=== PATIENT | female | born 1935 | race Caucasian/White ===

== ENCOUNTER 2023-05-01 13:51 | Inpatient (IN) ==
[2023-05-01] MEDS ORDERED: IOPAMIDOL 100 ML BOTTLE IV ONE (13:52)
[2023-05-01 15:20] LABS: Basophils # (Auto) 0.02 K/mcL (0.00-0.30); Basophils % (Auto) 0.3 % (0.0-2.0); Eosinophils # (Auto) 0.13 K/mcL (0.00-0.70); Eosinophils % (Auto) 1.9 % (0.0-7.0); Hematocrit 41.1 % (34.1-44.9); Hemoglobin 12.7 g/dL (11.2-15.7); Lymphocytes # (Auto) 0.66 K/mcL (1.50-4.80); Lymphocytes % (Auto) 9.7 % (15.5-49.0); Mean Cell Volume 99.3 fL (80.0-100.0); Mean Corpuscular HGB Conc 30.9 g/dL (31.0-36.0); Mean Platelet Volume 10.1 fL (8.8-12.5); Monocytes # (Auto) 0.49 K/mcL (0.10-0.90); Monocytes % (Auto) 7.2 % (1.0-12.0); Neutrophils % (Auto) 80.6 % (38.0-78.0); Platelet Count 244 K/mcL (140-440); RBC 4.14 M/mcL (3.59-5.38); Red Cell Distribution Width 19.8 % (11.5-14.5); WBC 6.8 K/mcL (4.5-11.0)
[2023-05-01 15:36] LABS: ALT/SGPT 28 U/L (<40); AST/SGOT 40 U/L (<32); Albumin 3.7 gm/dL (3.2-5.2); Albumin/Globulin Ratio 1.2 (1.0-2.3); Alkaline Phosphatase 128 U/L (39-117); Bilirubin,Total 0.9 mg/dL (0.1-1.0); Blood Urea Nitrogen 37 mg/dL (8-23); Calcium 8.8 mg/dL (8.6-10.4); Carbon Dioxide 22 mmol/L (22-30); Chloride 103 mmol/L (96-108); Globulin 3.1 gm/dL (2.2-3.7); Glomerular Filtration Rate 40; Glucose 144 mg/dL (70-105)
[2023-05-01] MEDS: FUROSEMIDE 20 MG/2 ML VIAL IV ONE (15:45)
[2023-05-01] MEDS ORDERED: IPRATROPIUM/ALBUTEROL 3 ML AMPUL.NEB NEB PRN (21:36)
[2023-05-01] MEDS ORDERED: ACETAMINOPHEN 325 MG TABLET PO PRN (21:36)
[2023-05-01] MEDS ORDERED: ONDANSETRON 4 MG/2 ML VIAL IV PRN (21:36)
[2023-05-01] MEDS ORDERED: morphine 2 MG/ML VIAL IV PRN (21:36)
[2023-05-01] MEDS ORDERED: LACTULOSE 20 GM/30 ML ORAL.SOL PO PRN (21:36)
[2023-05-01] MEDS ORDERED: SENNOSIDES 1 TABLET PO PRN (21:36)
[2023-05-01] MEDS: DOCUSATE SODIUM 100 MG CAPSULE PO SCH (22:11)
[2023-05-01] MEDS: BUMETANIDE 1 MG/4 ML VIAL IV SCH (22:13)
[2023-05-01] MEDS: 0.9 % SODIUM CHLORIDE 10 ML SYRINGE IV SCH (22:14)
[2023-05-02 06:17] LABS: ALT/SGPT 19 U/L (<40); AST/SGOT 31 U/L (<32); Albumin 3.3 gm/dL (3.2-5.2); Albumin/Globulin Ratio 1.3 (1.0-2.3); Alkaline Phosphatase 107 U/L (39-117); Bilirubin,Direct 0.4 mg/dL (<0.3); Bilirubin,Total 0.7 mg/dL (0.1-1.0); Blood Urea Nitrogen 33 mg/dL (8-23); Calcium 8.3 mg/dL (8.6-10.4); Carbon Dioxide 27 mmol/L (22-30); Chloride 104 mmol/L (96-108); Globulin 2.5 gm/dL (2.2-3.7); Glomerular Filtration Rate 40; Glucose 92 mg/dL (70-105); Lactate Dehydrogenase 338 U/L (135-225); Phosphorous 4.5 mg/dL (2.5-4.5); Triglycerides 117 mg/dL (<150)
[2023-05-02] MEDS: HYDROcodone/APAP 5/325MG TABLET PO PRN (19:44)
[2023-05-03 05:48] LABS: ALT/SGPT 16 U/L (<40); AST/SGOT 25 U/L (<32); Albumin 3.3 gm/dL (3.2-5.2); Albumin/Globulin Ratio 1.2 (1.0-2.3); Alkaline Phosphatase 98 U/L (39-117); Bilirubin,Direct 0.2 mg/dL (<0.3); Bilirubin,Total 0.5 mg/dL (0.1-1.0); Blood Urea Nitrogen 36 mg/dL (8-23); Calcium 8.1 mg/dL (8.6-10.4); Carbon Dioxide 34 mmol/L (22-30); Chloride 101 mmol/L (96-108); Globulin 2.8 gm/dL (2.2-3.7); Glomerular Filtration Rate 33; Glucose 108 mg/dL (70-105); Lactate Dehydrogenase 405 U/L (135-225); Phosphorous 3.6 mg/dL (2.5-4.5); Triglycerides 109 mg/dL (<150); Uric Acid 8.3 mg/dL (2.5-8.0)
[2023-05-03] MEDS ORDERED: NITROGLYCERIN 0.4 MG TAB.SUBL SL PRN (07:57)
[2023-05-03] MEDS: NITROGLYCERIN 0.4 MG TAB.SUBL SL SCH (09:31)
[2023-05-03] MEDS: POTASSIUM CHLORIDE 20 MEQ/15 ML ML PO SCH (12:04)
[2023-05-03] MEDS: BUMETANIDE 1 MG TABLET PO SCH (16:54)
[2023-05-03] MEDS: diphenhydrAMINE 25 MG CAPSULE PO PRN (19:57)
== END 2023-05-04 11:35 | DRG 280 ==
LOC: ED 13:51 → ICU 21:30
PROVIDERS: ADMIT Internal Medicine; ATTEND Internal Medicine